=== PATIENT | female | born 1940 | race Caucasian/White ===

== ENCOUNTER 2021-11-29 20:38 | Emergency (ER) | payer MEDICARE ==
[~2021-11-29] VITALS: Ht 152.4 cm; Wt 52.3 kg
[2021-11-29] MEDS ORDERED: morphine 4 MG/ML inj SYRINge IV ONE (22:15)
[2021-11-29] MEDS ORDERED: propofol 10mg/ml 20ml vial IV ONE (22:30)
--- NOTE | 2021-11-29 22:47 | NUR ---
Alek (son) [phone], Soledad (friend) [phone]
[2021-11-29 22:57] LABS: APTT 28 SECONDS (22-32)
[2021-11-29 22:59] LABS: BASOPHILS % (AUTO) 0.4 % (0-1); EOSINOPHILS % (AUTO) 0.1 % (0-6); HEMATOCRIT 34.9 % (35.0-45.0); HEMOGLOBIN 11.5 g/dl (12.0-16.0); LYMPHOCYTES # (AUTO) 0.4 X10'3 (1.1-4.8); LYMPHOCYTES % (AUTO) 2.8 % (21-51); MEAN CORPUSCULAR HEMOGLOBIN 30.9 PG (27.0-31.0); MEAN CORPUSCULAR VOLUME 93.6 FL (78-98); MEAN PLATELET VOLUME 8.2 FL (7.4-10.4); MONOCYTES # (AUTO) 0.4 X10'3 (0-0.9); MONOCYTES % (AUTO) 2.8 % (2-12); NEUTROPHILS # (AUTO) 12.6 X10'3 (1.8-7.7); NEUTROPHILS % (AUTO) 93.9 % (42-75); PLATELET COUNT 262 X10'3 (140-440); RED BLOOD COUNT 3.72 X10'6 (4.20-5.60); RED CELL DISTRIBUTION WIDTH 14.6 % (11.5-14.5); WHITE BLOOD COUNT 13.4 X10'3 (4.5-11.0)
[2021-11-29 23:00] VITALS: BP 131/57
[2021-11-29 23:00] LABS: ALANINE AMINOTRANSFERASE 28 U/L (12-78); ALBUMIN 4.4 G/DL (3.4-5.0); ALBUMIN/GLOBULIN RATIO 1.2 (1.1-1.5); ALKALINE PHOSPHATASE 62 IU/L (46-116); ANION GAP 10 (8-16); ASPARTATE AMINO TRANSFERASE 26 U/L (10-37); BILIRUBIN,TOTAL 0.4 MG/DL (0.1-1.0); BLOOD UREA NITROGEN 28 MG/DL (7-18); BUN/CREATININE RATIO 18.9 (6.6-38.0); CALCIUM 9.1 MG/DL (8.5-10.1); CHLORIDE 100 MMOL/L (99-107); CREATININE 1.48 MG/DL (0.40-0.90); GLUCOSE 133 MG/DL (70-104); POTASSIUM 4.2 MMOL/L (3.5-5.1); SODIUM 137 MMOL/L (135-145); TOTAL CARBON DIOXIDE 26.7 MMOL/L (24-32); TOTAL PROTEIN 8.1 G/DL (6.4-8.2); eGFR 34 ML/MIN
[2021-11-29] MEDS ORDERED: iohexol 300mg/ml 100ml inj. ONE (23:03)
[2021-11-29] MEDS ORDERED: [UNRECOGNIZED DRUG - OTHER] PO (23:34)
[2021-11-29] MEDS ORDERED: AMLO1TAB15 PO (23:34)
[2021-11-29] MEDS ORDERED: LEVOTHYROXINE PO (23:34)
[2021-11-29] MEDS ORDERED: etomidate 2mg/ml inj. IV ONE (23:50)
--- NOTE | 2021-11-29 23:57 | NUR ---
Moderate sedation and reduction canceled due to low heart rate.
[2021-11-30] MEDS ORDERED: normal saline 1000ml 1,000 ML IV ONE (00:30)
--- NOTE | 2021-11-30 02:51 | NUR ---
Advised Soledad (friend) patient is being transfered to [facility], she will advise the son.
[2021-11-30] MEDS ORDERED: fentaNYL/PF 50MCG/1 ML 2ML syringe IV ONE (02:55)
== END 2021-11-30 03:10 | disposition short-term general hospital (02) ==
LOC: ER 20:39
DX: S02.40DA Maxillary fracture, left side, initial encounter for closed fracture (principal); Z20.822 Contact with and (suspected) exposure to COVID-19; S42.202A Unspecified fracture of upper end of left humerus, initial encounter for closed fracture; S09.90XA Unspecified injury of head, initial encounter; I10 Essential (primary) hypertension; Z88.2 Allergy status to sulfonamides; Z79.899 Other long term (current) drug therapy; Z79.01 Long term (current) use of anticoagulants; W19.XXXA Unspecified fall, initial encounter; Y93.01 Activity, walking, marching and hiking; Y92.89 Other specified places as the place of occurrence of the external cause; Y99.8 Other external cause status
CPT/HCPCS: 36415; 70450; 70486; 71045; 71260; 72125; 72128; 72131; 73030; 74177; 80053; 85025; 85610; 85730; 86885; 86900; 86901; 87635; 93005; 96361; 96374; 96375; 99291; C9803; J2270; J3010; J7030; Q9967; 99285